=== PATIENT | male | born 1995 | race African-American/Black ===

== ENCOUNTER 2018-11-08 14:34 | Outpatient (CLI) | payer OTHER ==
--- NOTE | 2018-11-08 15:32 | MRI ---
MRI LEFT KNEE: DATE: 11/08/2018. PROVIDED CLINICAL HISTORY: Left knee pain. FINDINGS: The anterior cruciate ligament, posterior cruciate ligament, medial collateral ligament, and lateral collateral ligamentous complex demonstrate an intact MR appearance, as does the extensor mechanism. 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 No edema within the surrounding soft tissues. The medial and lateral menisci demonstrate no evidence for tear. No focal articular cartilage defect is apparent. The amount of fluid within the knee joint appears physiologic. Regional marrow and muscular signal appears otherwise normal. IMPRESSION: 1. No evidence of internal derangement. 2. 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 POS: [facility]
== END 2018-11-08 14:35 | disposition home or self-care (01) ==
LOC: BICMRI 14:34
PROVIDERS: ATTEND Family Medicine
DX: S89.92XD Unspecified injury of left lower leg, subsequent encounter (principal)

== ENCOUNTER 2019-04-17 13:11 | Outpatient (CLI) | payer OTHER ==
[~2019-04-17 13:11] MED LIST: EPINEPHrine 1 MG/ML AMP ONE; Gadobenate Dimeglumine 529 MG/1 ML (20ML VIAL) ONE; Iopamidol 300 61% 50 ML VIAL FS ONE; Lidocaine 1% PF 10 ML AMP ONE
--- NOTE | 2019-04-17 15:24 | RAD ---
Exam: LEFT SHOULDER ARTHROGRAM: HISTORY: Work injury. Pain. Impingement syndrome to left shoulder. 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 No fracture or dislocation. Successful left shoulder arthrogram with fluoroscopic guidance. Total of 12 mL of the contrast admixt ure was administered in the joint space. TECHNIQUE: Consent obtained to perform a left shoulder arthrogram. Left shoulder was prepped and draped in steri le fashion. 1% lidocaine, buffered with sodium bicarbonate used for local anesthesia. Under fluoroscopic guidance, a 22-gauge spinal needle was advanced into the intrathecal space. A total of 1 2 mL of contrast administered was administered. Patient tolerated the procedure well. No immediate or postprocedure complication. IMPRESSION: Successful left shoulder arthrogram. Transcribed Date/Time: 04/17/2019 3:31 PM
--- NOTE | 2019-04-17 16:21 | MRI ---
EXAM: LEFT SHOULDER MRI POST ARTHROGRAM CONTRAST 04/17/19 HISTORY: Impingement of the left shoulder. Left shoulder pain. FINDINGS: Multiplanar and multisequence MRI examination of the shoulder is performed. There is prominent downsl oping of the lateral acromion and minimal downsloping of the anterior acromion. Only very minute AC j oint arthrosis changes. Rotator cuff tendons appear intact. Rotator cuff muscles are within normal li mits of signal and volume. No acute osteochondral defect. No significant abnormal marrow signal. The visualized labrum appears intact. IMPRESSION: Prominent downsloping of the lateral acromion and mild downsloping of the anterior acromion. No evide nce for rotator cuff tear. No evidence for labral tear or other acute process. POS: [facility]
== END 2019-04-17 13:12 | disposition home or self-care (01) ==
LOC: RAD 13:11
PROVIDERS: ATTEND Orthopaedic Surgery
DX: M75.42 Impingement syndrome of left shoulder (principal)
CPT/HCPCS: 23350; A9577; J0171; J2001; Q9967

== ENCOUNTER 2024-01-16 08:38 | Outpatient (CLI) | payer OTHER | END 2024-01-16 08:39 | disposition home or self-care (01) | LOC: BICMRI 08:38 | PROVIDERS: ATTEND Family Medicine | DX: M47.26 Other spondylosis with radiculopathy, lumbar region (principal); M51.16 Intervertebral disc disorders with radiculopathy, lumbar region; M48.061 Spinal stenosis, lumbar region without neurogenic claudication | CPT/HCPCS: 72148 ==